=== PATIENT | female | born 1940 | race Caucasian/White ===

== ENCOUNTER 2016-08-31 06:25 | Day surgery (SDC) | payer MEDICARE ==
[~2016-08-31 06:25] MED LIST: BL ASPIRIN325 MG PO; FISH OIL1000 MG PO; HYDROCHLORO25 MG/TAB PO; MEVACOR40 MG PO
[2016-08-31 10:26] VITALS: BP 139/67
== END 2016-08-31 09:05 | disposition home or self-care (01) ==
LOC: ENDO 06:25 → ORM 08:30 → ENDO 09:05
PROVIDERS: ATTEND Internal Medicine Gastroenterology
PROC: 0DBN8ZX Excision of Sigmoid Colon, Via Natural or Artificial Opening Endoscopic, Diagnostic (ICD-10-PCS; principal; 2016-08-31)
PROC: 0DBP8ZX Excision of Rectum, Via Natural or Artificial Opening Endoscopic, Diagnostic (ICD-10-PCS; 2016-08-31)
DX: Z12.11 Encounter for screening for malignant neoplasm of colon (principal); K64.4 Residual hemorrhoidal skin tags; K57.30 Diverticulosis of large intestine without perforation or abscess without bleeding; K64.8 Other hemorrhoids; K63.5 Polyp of colon; D12.8 Benign neoplasm of rectum; I10 Essential (primary) hypertension; Z86.010 Personal history of colon polyps; Z85.038 Personal history of other malignant neoplasm of large intestine